=== PATIENT | male | born 2000 | race Hispanic/Latino ===

== ENCOUNTER 2023-02-08 00:30 | Emergency (ER) | payer OTHER, SELFPAY ==
[2023-02-08] MEDS ORDERED: Lidocaine 1% w/Epinephrine 1:100K 20 ML VIAL ONE (05:31)
== END 2023-02-08 06:45 | disposition home or self-care (01) ==
LOC: ERS 00:30
DX: K61.0 Anal abscess (principal)
CPT/HCPCS: 46050